=== PATIENT | male | born 1955 | race Caucasian/White ===

== ENCOUNTER 2019-03-17 16:44 | Emergency (ER) | payer OTHER ==
[~2019-03-17] VITALS: Ht 182.9 cm; Wt 79.4 kg
[2019-03-17] MEDS ORDERED: VOLTAREN100 GM TOP (17:01)
[2019-03-17] MEDS ORDERED: LEXAPRO10 MG PO (17:02)
[2019-03-17] MEDS ORDERED: METOPROLOL SUCC25 MG PO (17:02)
--- NOTE | 2019-03-17 19:05 | EKG ---
[facility] [address] [facility] [place], [place] [address] Signed Sinus rhythm with occasional premature ventricular complexes Otherwise normal ECG No previous ECGs available Confirmed by RAINE MAE DO ([id number]) on 03/17/2019 7:05:08 PM Electronically Signed By: RAINE MAE DO 03/17/19 1905 PATIENT NAME: NICOLASA GALEANO Electrocardiogram DATE OF : 57 PHYSICIAN: RAINE MAE DO REPORT #: [id number] REPORT IS CONFIDENTIAL AND NOT TO BE RELEASED WITHOUT AUTHORIZATION
[2019-03-17] MEDS ORDERED: ATIVAN1 MG PO (20:34)
== END 2019-03-17 20:50 | disposition home or self-care (01) ==
LOC: ED 16:44
DX: F10.239 Alcohol dependence with withdrawal, unspecified (principal); R56.9 Unspecified convulsions; Y90.0 Blood alcohol level of less than 20 mg/100 ml; I10 Essential (primary) hypertension; F17.200 Nicotine dependence, unspecified, uncomplicated; Z88.5 Allergy status to narcotic agent; Z79.899 Other long term (current) drug therapy
CPT/HCPCS: 70450; 80053; 81001; 85025; 93005; 93010; 96361; 96374; 96376; 99284-25; 99406; G0480; J2060; J7030